=== PATIENT | male | born 1955 | race Caucasian/White ===

== ENCOUNTER 2017-08-30 21:20 | Emergency (ER) | payer OTHER ==
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
[2017-08-31 01:30] VITALS: BP 126/84
== END 2017-08-31 01:31 | disposition home or self-care (01) ==
DX: S40.012A Contusion of left shoulder, initial encounter (principal); S20.212A Contusion of left front wall of thorax, initial encounter; S43.402A Unspecified sprain of left shoulder joint, initial encounter; M54.12 Radiculopathy, cervical region; V18.4XXA Pedal cycle driver injured in noncollision transport accident in traffic accident, initial encounter; Y92.482 Bike path as the place of occurrence of the external cause; Y99.8 Other external cause status; Y93.39 Activity, other involving climbing, rappelling and jumping off
CPT/HCPCS: A4565